=== PATIENT | male | born 2005 | race Caucasian/White ===

== ENCOUNTER 2024-07-02 21:31 | Observation (INO) ==
[2024-07-02 22:28] LABS: Basophils # (auto) 0.03 K/uL (0.00-0.20); Basophils % (auto) 0.4 %; Eosinophils # (auto) 0.28 K/uL (0.00-0.50); Eosinophils % (auto) 3.7 %; Hemoglobin 15.1 g/dl (14.0-18.0); Immature Granulocytes # (auto) 0.01 K/uL (0.01-0.20); Immature Granulocytes % (auto) 0.1 %; Lymphocytes # (auto) 2.79 K/uL (1.20-3.40); Lymphocytes % (auto) 36.8 %; Mean Corpuscular Hgb Conc 34.3 g/dL (32.0-36.0); Mean Corpuscular Volume 87.3 fL (80.0-100.0); Mean Platelet Volume 10.5 fL (9.4-12.4); Monocytes # (auto) 0.73 K/uL (0.11-0.59); Monocytes % (auto) 9.6 %; Neutrophils # (auto) 3.75 K/uL (1.40-6.50); Neutrophils % (auto) 49.4 %; Platelet Count 191 K/uL (130-400); RDW Coefficient of Variation 12.4 % (11.5-14.5); RDW Standard Deviation 39.3 fL (36.4-46.3); Red Blood Count 5.04 M/uL (4.70-6.10); White Blood Count 7.59 K/ul (4.8-10.8)
[2024-07-02 22:50] LABS: Albumin Globulin Ratio 1.5 (0.9-2); Albumin Level 4.6 gm/dl (3.4-5.0); BUN Creatinine Ratio 21.5 (10-20); Bilirubin,Total 0.5 mg/dl (0.2-1.0); Calcium 9.7 mg/dl (8.6-10.3); Creatinine Clr Calc Pharmacy 131.7 ml/min; Total Protein 7.6 gm/dl (6.0-8.3)
[2024-07-02 22:56] LABS: Troponin I High Sensitivity 6.3 pg/ml (0-20)
[2024-07-02] MEDS: diphenhydrAMINE 50 MG/ML VIAL IV STA (23:03)
[2024-07-02] MEDS: METOCLOPRAMIDE HCL INJ 5 MG/ML 2 ML VIAL IV STA (23:04)
--- NOTE | 2024-07-02 23:06 | Emergency Department Note ---
History of Present Illness General Chief complaint: Visual Disturbance Stated complaint: VISUAL DISTURBANCE/ DOUBLE VISION Time Seen by Provider: 07/02/24 21:54 History of Present Illness This 18-year-old [employer] student who is healthy with no active medical problems that smokes marijuana daily presents ER complaining of double vision for the past 2 hours. Patient states he just got back from [place] and was getting back to his apartment and noticed he started getting double vision when he started hanging out with his roommate. No trauma to the eye. Patient denies loss of vision, eye pain, headache, fever, chills, flulike illness, numbness, tingling, floaters. No history of similar symptoms in the past. He states he has been using his same marijuana and no changes in this. No other drug use. Home Medications Medication Instructions Recorded Confirmed Type No Known Home Medications 07/03/24 07/03/24 History Allergies Allergy/AdvReac Type Severity Reaction Status Date / Time No Known Allergies Allergy Unverified 07/03/24 01:19 Past Med/Surg History Problem List (Updated 07/03/24 @ 03:33 by Heaven Vera PA-C) Cannabis use disorder (Acute) Anxiety Arachnoid cyst (Acute) Diplopia (Acute) Social History Smoking Status: Current every day smoker Preferred Language: [place] Feels Safe at Home: Yes Review of Systems A total of 10 systems reviewed and were otherwise negative Physical Exam Vital Signs Vital Signs - 24 hr 07/02/24 21:34 07/02/24 23:31 07/03/24 02:40 Temperature 36.8 C Temperature Source Temporal Artery Scan Pulse Rate 59 L 44 L Pulse Rate [Right Finger] 56 L Pulse Rhythm [Right Finger] Regular Pulse Strength [Right Finger] Normal Respiratory Rate 18 17 Respiratory Effort / Characteristics Non-Labored Spontaneous Non-Labored Spontaneous Respiratory Depth Normal Normal Respiratory Pattern Regular Blood Pressure 140/88 Blood Pressure [Right Arm] 121/69 Blood Pressure Mean 105 Blood Pressure Mean [Right Arm] 86 Blood Pressure Position [Right Arm] Lying Pulse Oximetry 98 98 Oxygen Delivery Method Room Air Room Air Sepsis Recent Fever Within 48 Hours No Sepsis New/Unexplained Change in Mental Status No Sepsis Action Taken by Nursing No Action Required VITALS: Vitals are noted on the nurse's note and reviewed by myself. Vital signs stable. GENERAL: Pleasant gentleman, in no acute distress, nondiaphoretic, well- developed well-nourished. SKIN: The skin was without rashes, erythema, edema, or bruising. There is no tenting of the skin. Capillary reflex less than 2 seconds. HEAD: Normocephalic atraumatic. EARS: External auditory canals clear EYES: Pupils equal round and reactive to light and accommodation. Conjunctivae without injection, sclerae without icterus. Extraocular movements intact. NOSE: Patent, no discharge. MOUTH: Mucous membranes moist. Pharynx without erythema or exudate. Uvula midline. Airway patent. Tongue does not deviate. NECK: Supple without nuchal rigidity. No lymphadenopathy. No thyromegaly. Cervical spine is nontender. No JVD. HEART: Regular rate and rhythm LUNGS: Clear to auscultation bilaterally without wheezes, rales or rhonchi. No retractions or accessory muscle use. ABDOMEN: Positive bowel sounds x 4. Normal tympanic percussion. Soft, nontender, without masses or organomegaly. Rodrigez sign negative. No guarding or rebound tenderness. No CVA tenderness MUSCULOSKELETAL: No muscle atrophy, erythema, or edema noted. NEURO: Patient was alert and oriented to person place and time. Normal sensation to light and sharp touch. No focal neurological deficits. Course Administered Medications Discontinued Medications Diphenhydramine HCl (Diphenhydramine 50 Mg/Ml Vial) 25 mg IV NOW STA Stop: 07/02/24 22:07 Last Admin: 07/02/24 23:03 Dose: 25 mg Documented By: SANDRA Gadobutrol (Gadobutrol 30ml Vial) 10 ml IV ONCE ONE Stop: 07/03/24 01:20 Last Admin: 07/03/24 01:19 Dose: 10 ml Documented By: JANY Ioversol (Optiray 320 125ml) 116 ml IV ONCE ONE Stop: 07/02/24 23:21 Last Admin: 07/02/24 23:20 Dose: 116 ml Documented By: YUSRA Lorazepam (Lorazepam 2 Mg/1 Ml Vial) 1 mg IV NOW STA Stop: 07/02/24 22:01 Last Admin: 07/02/24 23:08 Dose: Not Given Documented By: SANDRA Lorazepam (Lorazepam 2 Mg/1 Ml Vial) 1 mg IV NOW STA Stop: 07/02/24 23:21 Last Admin: 07/02/24 23:35 Dose: 1 mg Documented By: SANDRA Metoclopramide HCl (Metoclopramide Hcl Inj 5 Mg/Ml 2 Ml Vial) 10 mg IV NOW STA Stop: 07/02/24 22:07 Last Admin: 07/02/24 23:04 Dose: 10 mg Documented By: SANDRA Medical Decision Making Medical Records Attestation: I reviewed the patient's medical records. Home Medications Current Medication List: was personally reviewed by me Laboratory Data Attestation: I reviewed the patient's lab results. 07/02/24 22:10 07/02/24 22:10 Lab Results 07/02/24 Range/Units 22:10 WBC 7.59 (4.8-10.8) K/ul RBC 5.04 (4.70-6.10) M/uL Hgb 15.1 (14.0-18.0) g/dl Hct 44.0 (42.0-52.0) % MCV 87.3 (80.0-100.0) fL MCH 30.0 (25.0-34.0) pg MCHC 34.3 (32.0-36.0) g/dL RDW Std Deviation 39.3 (36.4-46.3) fL RDW Coeff of Burke 12.4 (11.5-14.5) % Plt Count 191 (130-400) K/uL MPV 10.5 (9.4-12.4) fL Immature Gran % (Auto) 0.1 % Neut % (Auto) 49.4 % Lymph % (Auto) 36.8 % [place] % (Auto) 9.6 % Eos % (Auto) 3.7 % Baso % (Auto) 0.4 % Neut # (Auto) 3.75 (1.40-6.50) K/uL Lymph # (Auto) 2.79 (1.20-3.40) K/uL [place] # (Auto) 0.73 H (0.11-0.59) K/uL Eos # (Auto) 0.28 (0.00-0.50) K/uL Baso # (Auto) 0.03 (0.00-0.20) K/uL Immature Gran # (Auto) 0.01 (0.01-0.20) K/uL PT 11.0 (9.0-12.0) Seconds INR 1.0 (0.9-1.1) APTT 27 (21-31) Seconds PTT Ratio 1.0 Sodium 138 (136-145) mmol/L Potassium 4.0 (3.5-5.1) mmol/L Chloride 101 (98-107) mmol/L Carbon Dioxide 31 (21-32) mmol/L Anion Gap 6 (3-11) BUN 23 (6-23) mg/dl Creatinine 1.07 (0.6-1.4) mg/dl Est Cr Clr Drug Dosing 131.7 ml/min eGFR 101.88 BUN/Creatinine Ratio 21.5 H (10-20) Glucose 84 (70-99(Fasting)) mg/dl Calcium 9.7 (8.6-10.3) mg/dl Magnesium 2.0 (1.7-2.4) mg/dl Total Bilirubin 0.5 (0.2-1.0) mg/dl AST 31 (13-39) U/L ALT 28 (7-52) U/L Alkaline Phosphatase 84 (34-104) U/L Troponin I High Sens 6.3 (0-20) pg/ml Total Protein 7.6 (6.0-8.3) gm/dl Albumin 4.6 (3.4-5.0) gm/dl Globulin 3.0 (2.5-4.0) gm/dl Albumin/Globulin Ratio 1.5 (0.9-2) TSH 3.362 (0.300-4.500) uIu/ml Imaging Data Attestation: I personally reviewed and interpreted this imaging study as follows: Radiologist's Impression: Head CT 07/02/24 22:01 CR Exam(s): CT HEAD Without Contrast EXAM: CT Head Without Intravenous Contrast CLINICAL HISTORY: Reason for exam: neuro deficit, vision changes. TECHNIQUE: Axial computed tomography images of the head/brain without intravenous contrast. CTDI is 22.84 mGy and DLP is 468.9 mGy-cm. Automated exposure control was utilized for the study. A dose lowering technique was utilized adhering to the principles of ALARA. COMPARISON: No relevant prior studies available. FINDINGS: Brain: Smooth oval 4.3 x 2.4 x 2.5 cm CSF dense structure in the anterior aspect of the left middle cranial fossa characteristic of an arachnoid cyst. Otherwise normal appearance of the brain. No intracranial hemorrhage or infarct is identified. No significant white matter disease. Ventricles: Unremarkable. No ventriculomegaly. Bones/joints: Unremarkable. No acute fracture. Soft tissues: Unremarkable. Sinuses: Unremarkable as visualized. No acute sinusitis. Mastoid air cells: Unremarkable as visualized. No mastoid effusion. IMPRESSION: Smooth oval 4.3 x 2.4 x 2.5 cm CSF dense structure in the anterior aspect of the left middle cranial fossa characteristic of an arachnoid cyst. No further imaging is required of this finding. Otherwise normal appearance of the brain. No intracranial hemorrhage or infarct is identified. Communications: Call Doctor Stroke Electronically signed by: Oj Selby MD 07/02/24 23:44 PM Head CTA 07/02/24 22:01 CR Exam(s): CTA HEAD With Contrast IV Amt: 116ML OPTIRAY 320 EXAM: CT Angiography Head With Intravenous Contrast CLINICAL HISTORY: Reason for exam: neuro deficit, vision changes. TECHNIQUE: Axial computed tomographic angiography images of the head with intravenous contrast. CTDI is 38.31 mGy and DLP is 624.41 mGy-cm. Automated exposure control was utilized for the study. A dose lowering technique was utilized adhering to the principles of ALARA. MIP reconstructed images were created and reviewed. CONTRAST: Patient received 116ML OPTIRAY 320 of IV contrast COMPARISON: No relevant prior studies available. FINDINGS: Right internal carotid artery: No acute findings. Intracranial segment is patent with no significant stenosis. No aneurysm. Right anterior cerebral artery: Unremarkable. No occlusion or significant stenosis. No aneurysm. Right middle cerebral artery: Unremarkable. No occlusion or significant stenosis. No aneurysm. Right posterior cerebral artery: Unremarkable. No occlusion or significant stenosis. No aneurysm. Right vertebral artery: Unremarkable as visualized. Left internal carotid artery: No acute findings. Intracranial segment is patent with no significant stenosis. No aneurysm. Left anterior cerebral artery: Hypoplasia of the left A1 segment. This is a normal variant. No occlusion or significant stenosis. No aneurysm. Left middle cerebral artery: Unremarkable. No occlusion or significant stenosis. No aneurysm. Left posterior cerebral artery: Unremarkable. No occlusion or significant stenosis. No aneurysm. Left vertebral artery: Unremarkable as visualized. Basilar artery: Unremarkable. No occlusion or significant stenosis. No aneurysm. Sinuses: 1.7 cm polyp or mucous retention cyst in the left maxillary sinus. The remaining sinuses are unremarkable. IMPRESSION: Normal appearance of the arterial structures of the brain. Communications: Call Doctor Stroke Electronically signed by: Oj Selby MD 07/02/24 23:46 PM Neck CTA 07/02/24 22:01 CR Exam(s): CTA NECK With Contrast IV Amt: 116ML OPTIRAY 320 EXAM: CT Angiography Neck With Intravenous Contrast CLINICAL HISTORY: Reason for exam: neuro deficit, vision changes. TECHNIQUE: Routine carotid CT angiography protocol was performed with intravenous contrast. NASCET criteria using the distal ICAs for comparison were used for evaluation of stenoses. CTDI is 12.25 mGy and DLP is 468 mGy-cm. Automated exposure control was utilized for the study. A dose lowering technique was utilized adhering to the principles of ALARA. MIP reconstructed images were created and reviewed. CONTRAST: Patient received 116ML OPTIRAY 320 of IV contrast COMPARISON: None. FINDINGS: VASCULATURE: Right common carotid artery: Unremarkable. No occlusion or significant stenosis. No dissection. Right internal carotid artery: Unremarkable. Extracranial segment is patent with no occlusion or significant stenosis. No dissection. Right external carotid artery: Unremarkable. No occlusion. Right vertebral artery: Unremarkable. No occlusion or significant stenosis. No dissection. Left common carotid artery: Unremarkable. No occlusion or significant stenosis. No dissection. Left internal carotid artery: Unremarkable. Extracranial segment is patent with no occlusion or significant stenosis. No dissection. Left external carotid artery: Unremarkable. No occlusion. Left vertebral artery: Unremarkable. No occlusion or significant stenosis. No dissection. NECK: Bones/joints: Unremarkable. No acute fracture. Soft tissues: Unremarkable. Lung apices: Clear. CAROTID STENOSIS REFERENCE USING NASCET CRITERIA: % ICA stenosis = (1 - narrowest ICA diameter/diameter of distal cervical ICA) x 100. Mild - <50% stenosis. Moderate - 50-69% stenosis. Severe - 70-94% stenosis. Near occlusion - 95-99% stenosis. Occluded - 100% stenosis. IMPRESSION: Negative CTA neck. Communications: Call Doctor Stroke Electronically signed by: Oj Selby MD 07/02/24 23:46 PM Brain MRI 07/02/24 23:49 EXAM: MR brain wo/w con CLINICAL HISTORY: double vision, ? left sixth nerve eye palsy TECHNIQUE: Multisequential and multiplanar images of the brain were submitted for review without and with contrast. COMPARISON: none FINDINGS: A well defined extra-axial T1 hypointense and T2 hyperintense cystic lesion , with compression FLAIR suppression and no -enhancing component, measuring 3.4x4.4x2.3cm seen in left anterior temporal region. The brain shows normal morphology, signal intensity, and volume for age. No focal parenchymal lesions are seen. No pathological enhancement is noted on the postcontrast sequences. No intracranial hemorrhage, mass effect, midline shift or hydrocephalus is identified. Ventricles, sulci, and basal cisterns are symmetric and normal in size and configuration. Diffusion-weighted sequences show no evidence of acute ischemic infarction. Midline structures including the pituitary gland, corpus callosum, pineal region, and brainstem are unremarkable. The craniovertebral junction is within normal limits. No calvarial abnormalities are identified. The paranasal sinuses and mastoid air cells are clear. Orbital structures are unremarkable. Appropriate flow voids are present in the visualized intracranial vessels. IMPRESSION: 1. No abnormal enhancing lesion in brain parenchymal. 2. A well defined extra-axial T2 hyperintense cystic lesion in left anterior temporal region- Arachnoid cyst. Electronically signed by Pako Grissom 07-03-2024 03:24 AM Orbit MRI 07/02/24 23:49 EXAM: MR orbit wo/w con CLINICAL HISTORY: ? sixth nerve eye palsy; double vision TECHNIQUE: Multiplanar multisequence MRI of the orbits without and with gadolinium, fat-suppressed technique. COMPARISON: none FINDINGS: Bilateral abducent nerve complexes shows normal course and caliber. No abnormal signal intensity. No focal lesion seen. No proptosis. Globes are symmetric in volume and signal intensity. No intra-or extraconal mass. Extraocular muscles are symmetric in volume, signal intensity. Retro-orbital fat is unremarkable. Periorbital soft tissue suggests no discrete abnormality. Orbital apex, region of the optic chiasm are unremarkable. Cavernous sinus are intact. Symmetric lacrimal glands. Incomplete fat suppression of the intraorbital fat is identified. Left maxillary sinus small mucosal polyp seen. Intracranial left anterior temporal region arachnoid cyst seen. IMPRESSION: 1. Bilateral abducent nerve complexes shows normal course and caliber. No abnormal signal intensity. No focal lesion seen. 2. Unremarkable MRI of both orbits. 3. Left maxillary sinus small mucosal polyp seen. 4. Intracranial left anterior temporal region arachnoid cyst seen. Electronically signed by Pako Grissom 07-03-2024 03:27 AM MDM Narrative Prior records/ancillary studies reviewed and summarized above. Nursing notes reviewed. Additional history obtained from friends. The patient's history was concerning for difficulty focusing. Differential diagnosis: Etiologies such as neurologic, ophthalmologic, polysubstance, migraine variant, metabolic, infection, hypo/hyperglycemia, electrolyte abnormalities, cardiac sources, intracerebral event, toxicologic, neurologic, as well as others were entertained. Physical examination: As above. ER treatment provided: IV Lock An order was placed for continuous cardiac monitoring. The monitor shows a rate of 60-100 with a sinus rhythm per my interpretation. Reglan and Benadryl ordered On reassessment the patient felt better. Diagnostics interpretation by me: ECG: Ordered for weakness EKG: Normal sinus, normal intervals, no acute ST-T wave changes, rate of 46. Impression sinus bradycardia independently interpreted by myself The labs Independently Interpreted by myself revealed no worrisome leukocytosis, stable H&H Negative troponin Imaging studies: Imaging was reviewed and read by radiology Consultation: A consultation was placed with the neurologist, Dr. Lemon. The case was discussed and diagnostics were reviewed. He recommends MRI and admission to medicine. Most likely this is a 6th nerve palsy. Consultation was placed with medicine and the case is discussed. Patient be admitted to the medical service. While the patient was in the ER, his double vision got worse and did reexamine the patient. His left eye is now deviating more medially and he is unable to look up and out. Right eye is normal. Exam and history seem consistent with double vision with concerns for 6th nerve palsy. CT/ CTAs were negative. MRI was reviewed and no stroke. Stable labs. Patient did smoke a fair amount of marijuana today. Neurology was consulted and recommends medical admission with MRIs. They stated the patient was grossly abnormal to consult telestroke at [facility]. Patient was neurovascularly and neurologically intact. He is tolerating fluids. No loss of vision. No eye pain. Medicine and neurology were consulted and patient will be mated to the medical service. Patient is agreeable. By the evaluation outlined above emergent etiologies such as infection, electrolyte abnormalities, cardiac sources, abnormalities blood glucose, metabolic, as well as others were deemed relatively unlikely. The pt informed about the findings as listed above. All questions were answered and pleased with the treatment. The chart was completed utilizing [employer] voice recognition software. Grammatical errors, random word insertions, pronoun errors, and incomplete sentences are an occassional consequence of this system due to software limitations, ambient noise, and hardware issues. Any formal questions or concerns about the content, text, or information contained within the body of this dictation should be directly addressed to the physician acquisitions assistant for clarification. Impression & Plan Diplopia, Arachnoid cyst, Cannabis use disorder Discharge Plan Visit Data Chief Complaint: Visual Disturbance Stated Complaint: VISUAL DISTURBANCE/ DOUBLE VISION ED Provider: Darline Chen ED Midlevel Provider: Heaven Vera Discharge Problem: Diplopia, Arachnoid cyst, Cannabis use disorder Patient Disposition: Admitted As Inpatient Condition: Good Forms Stand Alone Forms: [employer] Prescriptions Prescriptions: No Action No Known Home Medications Referrals [facility]: [facility] [Primary Care Provider] -
[2024-07-02] MEDS: LORazepam 2 MG/1 ML VIAL IV STA ×2 (23:08→23:35)
[2024-07-02] MEDS: OPTIRAY 320 125ml IV ONE (23:20)
[2024-07-02 23:32] LABS: Partial Thromboplastin Time 27 Seconds (21-31)
--- NOTE | 2024-07-02 23:45 | CT Scan Report ---
Exam(s): CT HEAD Without Contrast EXAM: CT Head Without Intravenous Contrast CLINICAL HISTORY: Reason for exam: neuro deficit, vision changes. TECHNIQUE: Axial computed tomography images of the head/brain without intravenous contrast. CTDI is 22.84 mGy and DLP is 468.9 mGy-cm. Automated exposure control was utilized for the study. A dose lowering technique was utilized adhering to the principles of ALARA. COMPARISON: No relevant prior studies available. FINDINGS: Brain: Smooth oval 4.3 x 2.4 x 2.5 cm CSF dense structure in the anterior aspect of the left middle cranial fossa characteristic of an arachnoid cyst. Otherwise normal appearance of the brain. No intracranial hemorrhage or infarct is identified. No significant white matter disease. Ventricles: Unremarkable. No ventriculomegaly. Bones/joints: Unremarkable. No acute fracture. Soft tissues: Unremarkable. Sinuses: Unremarkable as visualized. No acute sinusitis. Mastoid air cells: Unremarkable as visualized. No mastoid effusion. IMPRESSION: Smooth oval 4.3 x 2.4 x 2.5 cm CSF dense structure in the anterior aspect of the left middle cranial fossa characteristic of an arachnoid cyst. No further imaging is required of this finding. Otherwise normal appearance of the brain. No intracranial hemorrhage or infarct is identified. Communications: Call Doctor Stroke Electronically signed by: Oj Selby MD 07/02/24 23:44 PM
--- NOTE | 2024-07-02 23:46 | CT Scan Report ---
Exam(s): CTA HEAD With Contrast IV Amt: 116ML OPTIRAY 320 EXAM: CT Angiography Head With Intravenous Contrast CLINICAL HISTORY: Reason for exam: neuro deficit, vision changes. TECHNIQUE: Axial computed tomographic angiography images of the head with intravenous contrast. CTDI is 38.31 mGy and DLP is 624.41 mGy-cm. Automated exposure control was utilized for the study. A dose lowering technique was utilized adhering to the principles of ALARA. MIP reconstructed images were created and reviewed. CONTRAST: Patient received 116ML OPTIRAY 320 of IV contrast COMPARISON: No relevant prior studies available. FINDINGS: Right internal carotid artery: No acute findings. Intracranial segment is patent with no significant stenosis. No aneurysm. Right anterior cerebral artery: Unremarkable. No occlusion or significant stenosis. No aneurysm. Right middle cerebral artery: Unremarkable. No occlusion or significant stenosis. No aneurysm. Right posterior cerebral artery: Unremarkable. No occlusion or significant stenosis. No aneurysm. Right vertebral artery: Unremarkable as visualized. Left internal carotid artery: No acute findings. Intracranial segment is patent with no significant stenosis. No aneurysm. Left anterior cerebral artery: Hypoplasia of the left A1 segment. This is a normal variant. No occlusion or significant stenosis. No aneurysm. Left middle cerebral artery: Unremarkable. No occlusion or significant stenosis. No aneurysm. Left posterior cerebral artery: Unremarkable. No occlusion or significant stenosis. No aneurysm. Left vertebral artery: Unremarkable as visualized. Basilar artery: Unremarkable. No occlusion or significant stenosis. No aneurysm. Sinuses: 1.7 cm polyp or mucous retention cyst in the left maxillary sinus. The remaining sinuses are unremarkable. IMPRESSION: Normal appearance of the arterial structures of the brain. Communications: Call Doctor Stroke Electronically signed by: Oj Selby MD 07/02/24 23:46 PM
--- NOTE | 2024-07-02 23:47 | CT Scan Report ---
Exam(s): CTA NECK With Contrast IV Amt: 116ML OPTIRAY 320 EXAM: CT Angiography Neck With Intravenous Contrast CLINICAL HISTORY: Reason for exam: neuro deficit, vision changes. TECHNIQUE: Routine carotid CT angiography protocol was performed with intravenous contrast. NASCET criteria using the distal ICAs for comparison were used for evaluation of stenoses. CTDI is 12.25 mGy and DLP is 468 mGy-cm. Automated exposure control was utilized for the study. A dose lowering technique was utilized adhering to the principles of ALARA. MIP reconstructed images were created and reviewed. CONTRAST: Patient received 116ML OPTIRAY 320 of IV contrast COMPARISON: None. FINDINGS: VASCULATURE: Right common carotid artery: Unremarkable. No occlusion or significant stenosis. No dissection. Right internal carotid artery: Unremarkable. Extracranial segment is patent with no occlusion or significant stenosis. No dissection. Right external carotid artery: Unremarkable. No occlusion. Right vertebral artery: Unremarkable. No occlusion or significant stenosis. No dissection. Left common carotid artery: Unremarkable. No occlusion or significant stenosis. No dissection. Left internal carotid artery: Unremarkable. Extracranial segment is patent with no occlusion or significant stenosis. No dissection. Left external carotid artery: Unremarkable. No occlusion. Left vertebral artery: Unremarkable. No occlusion or significant stenosis. No dissection. NECK: Bones/joints: Unremarkable. No acute fracture. Soft tissues: Unremarkable. Lung apices: Clear. CAROTID STENOSIS REFERENCE USING NASCET CRITERIA: % ICA stenosis = (1 - narrowest ICA diameter/diameter of distal cervical ICA) x 100. Mild - <50% stenosis. Moderate - 50-69% stenosis. Severe - 70-94% stenosis. Near occlusion - 95-99% stenosis. Occluded - 100% stenosis. IMPRESSION: Negative CTA neck. Communications: Call Doctor Stroke Electronically signed by: Oj Selby MD 07/02/24 23:46 PM
--- NOTE | 2024-07-03 00:06 | Emergency Department Note ---
ED Visit Note I was consulted by the Advanced Practice Provider, Heaven Vera PA-C. I performed a substantive portion of the visit. This includes aspects of: History: Patient is a 18-year-old male presenting with diplopia. Patient reports he just rode back to school from [place] after spring break and while he was unpacking his stuff he developed sensation that his eyes were crossing and double vision. He states vision has been double since onset at around 8:30 PM this evening. He denies any trauma or recent chiropractic manipulation of his neck. He denies any headache. He states that when he opens his eyes one by one he has no double vision, but when both eyes are open he is seeing 2 of everything. MDM: - Laboratory workup interpreted myself showed normal WBCs; normal PT/INR; stable electrolytes; normal troponin; normal TSH - CT head wo contrast showed what appeared to be an arachnoid cyst in the anterior aspect of left middle cranial fossa. Radiology reported that this needed no further workup on their phone call to me. - CTA head/neck negative - On examination, the patient appears to have a cranial nerve palsy. - Neurologist, Dr. Lemon, was consulted by Heaven Vera PA-C. He agreed with admission for further workup. Patient will be admitted to [facility]. .
[2024-07-03 00:50] LABS: Thyroid Stimulating Hormone 3.362 uIu/ml (0.300-4.500)
[2024-07-03] MEDS: GADOBUTROL 30ML VIAL IV ONE (01:19)
--- NOTE | 2024-07-03 01:32 | History & Physical Report ---
Date of Service July 03, 2024 Assessment & Plan (1) Diplopia: (2) Arachnoid cyst: (3) Anxiety: Plan Patient is a 18-year-old male with no significant past medical history. He presented to the ED after returning from spring with double vision that began at 8:30 PM. He opens his eyes one by one he has no double vision, but when both eyes are open he sees [address] of the head showed arachnoid cyst in the anterior aspect of the left middle cranial fossa. Brain and orbit MRI with and without contrast ordered and pending. He is being admitted to have neurology eval in the morning, different includes but not limited to cranial nerve 6 palsy. #diplopia denies trauma to the eye head ct shows arachnoid cyst head/neck CTA negative brain/orbit MRI pending differential remains broad however neurology input believes that it may be cranial nerve palsy - differential includes but not limited to tickborne illness, viral illness, Medication side effect (recently started Vyvanse, can cause diplopia, took 1x dose 06/29) TSH WNL glucose stable, will add A1c to labs as DM can contribute to CN 6 palsy (no hx of DM) tick screen including Lyme ordered, RPR ordered Electrolytes stable Continue supportive care with Ativan and Reglan as needed neurology consulted #arachnoid cyst CT head showed 4.3 x 2.4 x 2.5 arachnoid cyst in anterior aspect of left middle cranial fossa - no mass effect Brain and orbit MRI pending Neurology consulted #anxiety 2/2 diplopia Ativan as needed does not use anything for anxiety at baseline VTE ppx: SCDs, low risk Diet: regular Dispo: med surg, obs - possible discharge home 07/03 Admission and Anticipated Discharge Date Admission Date: 07/03/24 History of Present Illness Chief Complaint: visual disturbance Primary Care Provider: [facility] Patient is a 18-year-old male with no significant past medical history. He presented to the ED after returning from spring with double vision that began at 8:30 PM. He opens his eyes one by one he has no double vision, but when both eyes are open he sees [address] of the head showed arachnoid cyst in the anterior aspect of the left middle cranial fossa. Brain and orbit MRI with and without contrast ordered and pending. He is being admitted to have neurology eval in the morning. Patient seen at bedside with his friends present. he stated that at 8:30 PM he began with double vision that has been worsening, however improved after receiving Benadryl, Reglan, and Ativan in the ED. He endorses associated nausea and dizziness, however became extremely anxious that his vision would not return and feels as though that was contributing to his nausea. He stated the diplopia gets worse further away and is equal in both of his eyes. It is at a horizontal standpoint. He stated it is an exact replica of the objects, denies it being shadow like. He stated he does wear reading glasses occasionally. He did recently start Vyvanse on , approximately 3 days ago, he only took it 1 time to see if he had a reaction. he denies any fevers, chills, chest pain, shortness of breath, ABD pain, vomiting, diarrhea, flulike symptoms, rhinorrhea, sore throat, congestion, cough. Patient does not use nicotine products or regularly drink alcohol. He is a daily marijuana user for approximately 3 years. He denies any illicit drug use other than marijuana. He stated he does not believe he has ever been bit by a tick, denies any rashes. His girlfriend and roommates had mono last semester, however he was tested and was negative. His only past medical history is childhood asthma, he rarely uses his inhaler. He denies past history of DM. He wishes to be full code. Allergies Allergy/AdvReac Type Severity Reaction Status Date / Time No Known Allergies Allergy Unverified 07/03/24 01:19 Home Medications Medication Instructions Recorded Confirmed Type No Known Home Medications 07/03/24 07/03/24 History Past Med/Surg History Problem List (Updated 07/03/24 @ 03:33 by Heaven Vera PA-C) Cannabis use disorder (Acute) Anxiety Arachnoid cyst (Acute) Diplopia (Acute) Social History Smoking Status: Current every day smoker Preferred Language: [place] Feels Safe at Home: Yes Review of Systems Review of Systems: see HPI Physical Exam Physical Exam: The patient is awake, alert and oriented 3, well developed and well nourished, normocephalic and atraumatic, in no acute distress. Non-toxic appearing. HEENT- mucous membranes moist. Hearing grossly intact. Heart-normal S1 and S2. No murmurs, rubs or gallops. Lungs-clear bilaterally, no respiratory distress, no accessory muscle use. Abdomen-normal bowel sounds and soft. No ascites noted. Non-tender. Extremities- no clubbing, cyanosis, or edema. Rheumatologic-normal range of motion. Psychiatric- Anxious affect. Eyes: PERRL and + EOM movement deficit ( right eye lagging compared to left, however received 2 Mg IV Ativan); normal light reflex Results & Data Results & Data Vital Signs (Past 12 Hours) Vital Signs Temp Pulse Pulse Resp BP BP Pulse Ox 07/02/24 23:31 56 L 17 121/69 98 07/02/24 21:34 36.8 C 59 L 18 140/88 98 O2 Del Method 07/02/24 23:31 Room Air 07/02/24 21:34 Room Air Laboratory Results Reviewed CBC, CMP, mag, TSH, pt/inr Diagnostic Findings Reviewed neck CTA, head CTA, head CT Brain and orbit MRI pending Medications Administered ED2 Mg Ativan IV, Reglan 10 Mg IV, Benadryl 25 Mg IV ECG Additional Comments: Sinus bradycardia, rate 46 QTc 367 Code Status & VTE Plan Code Status full code VTE Prophylaxis Plan VTE Prophylaxis will be ordered: Yes Supervising Physician Co-Signing Physician Notes Attending addendum: I have physically seen this patient, have supervised the RAJI's activities, and agree with the H&P unless as otherwise noted. Assessment and Plan: The patient is a 18-year-old male with no significant past medical history. He presents to the emergency department returning from spring with complaint of double vision that began around 8:30 PM this evening. He reports that when both eyes are open he sees [address] scan of the head showed arachnoid cyst in the anterior aspect of the left middle cranial fossa. Brain and orbit MRI are ordered with and without contrast, and are pending Emergency department has contacted neurology, who request the patient be admitted to evaluate for possible cranial nerve palsy #Diplopia- No direct eye trauma or head trauma CT scan head shows arachnoid cyst that is 4.3 x 2.4 x 2.5 cm in the left middle cranial fossa. No mass effect is noted Differential including but not limited to: Tickborne illness, viral illness, medication side effect, having recently started Vyvanse on 06/29, with first dose taken at that time. Check a fasting lipid panel and hemoglobin A1c Consult neurology Arachnoid cyst- CT notes 4.3 x 2.4 x 2.5 cm arachnoid cyst in the anterior aspect left middle cranial fossa, no mass effect noted, brain and orbit MRI are pending, neurology is consulted, radiology notes no additional imaging needed be performed PG Care Time/CCT Total # of Minutes Spent Total Time Spent with Patient: Total time spent is greater than 50% in coordination of care (as documented) at patient's floor/unit and/or counseling patient: Coding Level of Care Code 51537 INT INP/OBS CARE 3/75MIN Diagnoses Diplopia H53.2 Arachnoid cyst G93.0 Anxiety F41.9
--- NOTE | 2024-07-03 03:25 | Magnetic Resonance Report ---
EXAM: MR brain wo/w con CLINICAL HISTORY: double vision, ? left sixth nerve eye palsy TECHNIQUE: Multisequential and multiplanar images of the brain were submitted for review without and with contrast. COMPARISON: none FINDINGS: A well defined extra-axial T1 hypointense and T2 hyperintense cystic lesion , with compression FLAIR suppression and no -enhancing component, measuring 3.4x4.4x2.3cm seen in left anterior temporal region. The brain shows normal morphology, signal intensity, and volume for age. No focal parenchymal lesions are seen. No pathological enhancement is noted on the postcontrast sequences. No intracranial hemorrhage, mass effect, midline shift or hydrocephalus is identified. Ventricles, sulci, and basal cisterns are symmetric and normal in size and configuration. Diffusion-weighted sequences show no evidence of acute ischemic infarction. Midline structures including the pituitary gland, corpus callosum, pineal region, and brainstem are unremarkable. The craniovertebral junction is within normal limits. No calvarial abnormalities are identified. The paranasal sinuses and mastoid air cells are clear. Orbital structures are unremarkable. Appropriate flow voids are present in the visualized intracranial vessels. IMPRESSION: 1. No abnormal enhancing lesion in brain parenchymal. 2. A well defined extra-axial T2 hyperintense cystic lesion in left anterior temporal region- Arachnoid cyst. Electronically signed by Pako Grissom 07-03-2024 03:24 AM
--- NOTE | 2024-07-03 03:27 | Magnetic Resonance Report ---
EXAM: MR orbit wo/w con CLINICAL HISTORY: ? sixth nerve eye palsy; double vision TECHNIQUE: Multiplanar multisequence MRI of the orbits without and with gadolinium, fat-suppressed technique. COMPARISON: none FINDINGS: Bilateral abducent nerve complexes shows normal course and caliber. No abnormal signal intensity. No focal lesion seen. No proptosis. Globes are symmetric in volume and signal intensity. No intra-or extraconal mass. Extraocular muscles are symmetric in volume, signal intensity. Retro-orbital fat is unremarkable. Periorbital soft tissue suggests no discrete abnormality. Orbital apex, region of the optic chiasm are unremarkable. Cavernous sinus are intact. Symmetric lacrimal glands. Incomplete fat suppression of the intraorbital fat is identified. Left maxillary sinus small mucosal polyp seen. Intracranial left anterior temporal region arachnoid cyst seen. IMPRESSION: 1. Bilateral abducent nerve complexes shows normal course and caliber. No abnormal signal intensity. No focal lesion seen. 2. Unremarkable MRI of both orbits. 3. Left maxillary sinus small mucosal polyp seen. 4. Intracranial left anterior temporal region arachnoid cyst seen. Electronically signed by Pako Grissom 07-03-2024 03:27 AM
[2024-07-03 03:40] LABS: Polychromasia 1+
[2024-07-03] MEDS ORDERED: ACETAMINOPHEN 325 MG TAB PO PRN (04:15)
[2024-07-03] MEDS ORDERED: DOCUSATE SODIUM 100 MG CAP PO PRN (04:15)
[2024-07-03] MEDS ORDERED: MELATONIN 3 MG TAB PO PRN (04:15)
[2024-07-03] MEDS ORDERED: METOCLOPRAMIDE HCL INJ 5 MG/ML 2 ML VIAL IV PRN (04:15)
[2024-07-03] MEDS ORDERED: LORazepam 2 MG/1 ML VIAL IV PRN (04:15)
[2024-07-03 05:20] VITALS: TEMP 97.5; O2SAT 96
[2024-07-03 07:11] VITALS: BP 119/69; PULSE 71; RESP 18
--- NOTE | 2024-07-03 09:48 | Medical Student Progress Note ---
Date of Service July 03, 2024 Assessment & Plan (1) Diplopia: (2) Arachnoid cyst: (3) Anxiety: Plan Patient is a 18-year-old male with no significant past medical history. He presented to the ED after returning from spring with double vision that began at 8:30 PM. He opens his eyes one by one he has no double vision, but when both eyes are open he sees [address] of the head showed arachnoid cyst in the anterior aspect of the left middle cranial fossa. Brain and orbit MRI with and without contrast ordered and pending. He is being admitted to have neurology eval in the morning, different includes but not limited to cranial nerve 6 palsy. #diplopia denies trauma to the eye head ct shows arachnoid cyst head/neck CTA negative brain/orbit MRI pending differential remains broad however neurology input believes that it may be cranial nerve palsy - differential includes but not limited to tickborne illness, viral illness, Medication side effect (recently started Vyvanse, can cause diplopia, took 1x dose 06/29) TSH WNL glucose stable, will add A1c to labs as DM can contribute to CN 6 palsy (no hx of DM) tick screen including Lyme ordered, RPR ordered Electrolytes stable Continue supportive care with Ativan and Reglan as needed neurology consulted #arachnoid cyst CT head showed 4.3 x 2.4 x 2.5 arachnoid cyst in anterior aspect of left middle cranial fossa - no mass effect Brain and orbit MRI pending Neurology consulted #anxiety 2/2 diplopia Ativan as needed does not use anything for anxiety at baseline VTE ppx: SCDs, low risk Diet: regular Dispo: med surg, obs - possible discharge home 07/03 Admission and Anticipated Discharge Date Admission Date: July 03, 2024 Subjective No acute overnight events. Mik feels well this morning. Diplopia was minimal when he first woke up, but has increased with time. Results & Data Vital Signs (Past 12 Hours) Vital Signs Temp Pulse Pulse Resp BP Pulse Ox O2 Del Method 07/03/24 07:08 36.4 C L 71 18 119/69 96 Room Air 07/03/24 05:09 36.4 C L 84 16 111/69 96 Room Air 07/03/24 03:56 Room Air 07/03/24 02:40 44 L 07/02/24 23:31 56 L 17 121/69 98 Room Air
--- NOTE | 2024-07-03 09:52 | Neurology Consultation ---
Date of Consultation July 03, 2024 Assessment & Plan (1) Diplopia: (2) Arachnoid cyst: Plan Patient has new onset (the evening of July 02) binocular diplopia of a painless, pupil sparing nature. There is no ptosis or any other cranial nerve deficit. He has no head tilt. The rest of his neurologic examination is unremarkable/normal. A slight left 3rd nerve palsy is possible. Extensive imaging study including MRI of the orbits and brain with and without contrast showed no abnormalities referable to his double vision. Brainstem and cranial nerve pathways were normal. The orbits did not show any evidence of inflammation/infection. I actually do not have any specific etiology for this acute double vision at this time. It may be a self-limited issue fading away over the next couple of days. Patient had an incidental left anterior temporal arachnoid cyst noted. He was likely born with this and is not causing any symptoms Recommendations: 1. Consider ESR, CRP, acetylcholine receptor antibodies titers (binding, blocking, and modulating), LUBA. 2. Patient should see an insulation helper as an outpatient 3. I do not see any indication for any additional neurologic testing at this time 4. There is no specific neurologic treatment for this. 5. Patient could follow-up with neurology PA in 3 to 4 weeks post discharge if he still has the issue. Overall, I spent a total of 75 minutes with this case including review of records, review of MRI films, direct evaluation the patient at bedside, report generation, and discussing the case with the patient and RN at bedside and Dr. 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 Apparently he had 1 dose of Vyvanse on June 29 (a new prescription) but did not take it the , , , or today. The patient admits to smoking marijuana on a daily basis. This was true throughout last week including July 02. Patient was in [place] for spring and he returned home early on the . Apparently only had 4 hours of sleep from the into the . He has had no history of head or neck trauma and has had no illness of any type recently. He has had no history of vision issues. Starting approximately 2030 on the evening of July 02 he had the sudden onset of double vision. He had a little bit of dizziness with this and he noticed the double vision with both eyes open straight ahead, upwards and downwards and to the left. He had no headache or eye pain and had no weakness or numbness of the face. He could swallow and speak well. There was a little bit of "dizziness" with this but no nausea or vomiting. The worst of it lasted about 2 hours but has had mild double vision essentially continuously ever since. He arrived to the emergency room at 2134, with a temperature of 36.8, pulse 59, respiratory rate 18, blood pressure 140/88, and O2 saturation 98%. According to the emergency room mentions extraocular eye muscles were intact and no disconjugate noted. CBC, CHEM profile, TSH were unremarkable/normal. CT scan of the head showed a left anterior temporal hypodensity consistent with an arachnoid cyst. CT angiography of the head and neck were unremarkable/normal with no vascular anomalies or stenoses. MRI of the brain with and without contrast showed a 3.4 x 4.4 x 2.3 cm cyst in the left anterior temporal region consistent with an arachnoid cyst. It did not enhance and there was no mass effect. There were no other abnormalities of the brain noted. MRI of the orbits was normal as well. This morning, the patient still has some double vision but it is not as prominent or disconcerting as it was last night. Now he tends to have double vision looking up or straight ahead and not so much to the right or left. He feels that his eyes are strained/tired but there is no eye pain. He denies any numbness or weakness in the arms or legs. He has no droopy eyelids or swallowing problems. This morning blood pressure was 119/69 and he was afebrile. Allergies Allergy/AdvReac Type Severity Reaction Status Date / Time No Known Allergies Allergy Unverified 07/03/24 01:19 Home Medications Medication Instructions Recorded Confirmed Type No Known Home Medications 07/03/24 07/03/24 History Patient History Medical History (Updated 07/03/24 @ 09:43 by Wero Soria MD) ADHD Family History Mother No problems noted. Father No problems noted. Social History Smoking Status: Never smoker Second Hand Exposure: No; Do You Dip or Chew Tobacco: No; Hx Alcohol Use: Yes Alcohol type: beer Alcohol Intake Frequency Comment: 6-7 drinks at a time, once or twice a month. 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 Feels Safe at Home: Yes Assistive Devices: None Review of Systems Constitutional: no fever, no fatigue and no weakness Eyes: no diplopia, no eye pain and no worsening vision Ear, Nose, Mouth, Throat: no ear pain, no tinnitus, no hearing loss, no dizziness, no snoring, no hoarseness and no dysphagia Respiratory: no cough and no dyspnea Cardiovascular: no chest pain, no palpitations and no lightheadedness Gastrointestinal: no abdominal pain, no nausea and no vomiting Musculoskeletal: no back pain, no neck pain, no radicular pain, no joint pain and no myalgia Integumentary: no rash and no lesions Neurologic: no gait abnormality, no localized weakness, no generalized weakness, no tingling, no numbness, no tremor(s), no abnormal movements, no headache(s), no abnormal speech, no confusion and no memory loss Psychiatric: no depression, no irritability, no anxiety, no difficulty concentrating, no confusion and no hallucinations Endocrine: no fatigue and no flushing Hematologic / Lymphatic: no easy bleeding and no easy bruising Allergy / Immunological: no urticaria and no problem reported Exam (Neuro) Physical Exam: The patient is right-handed. The patient is awake, alert, and attentive. Speech is normal without any aphasia or dysarthria. Mentation and thought processes are intact, with full orientation and normal fund of knowledge. Mood and affect are normal and appropriate. Appearance and grooming are normal. Short and long-term memory are intact. The discs are sharp with positive venous pulsations bilaterally. There are no exudates, hemorrhages, or blood vessel changes seen. Pupils are 4 mm bilaterally and reactive to light. Closing 1 eye or the other he has a full range of motion in each eye without any double vision or visual issues. With both eyes open, extraocular eye muscles seem intact without nystagmus. However, looking up, his left eye deviates a couple of degrees outward compared to the right. He states that he has double vision. Otherwise, he can track objects in all directions without obvious disconjugate gaze or nystagmus. Visual acuity and visual hogue seem normal grossly to confrontation. There are no deficits to sensation in the face in all 3 distributions of the fifth cranial nerve bilaterally. Corneal reflexes are positive bilaterally. Facial strength and symmetry was normal bilaterally. Hearing seems intact grossly to voice and finger rub bilaterally. Palate moves well without asymmetry. There is normal sternocleidomastoid and trapezius strength bilaterally. Tongue is midline with good strength bilaterally. Neck has a full range of motion without discomfort. There are no cervical bruits bilaterally. There are no cranial or ocular bruits. Heart is without murmur. There is a regular rhythm and rate. Cervical, thoracic, and lumbar spine are nontender to palpation. Gait was not tested. Stance sitting up in bed is normal. With outstretched arms there is no drift. There are no resting, postural, or action tremors. There is no ataxia with finger to nose testing. There is good facility in the hands. No other abnormal involuntary movements are noted. Motor strength is 5/5 diffusely in the arms bilaterally including deltoids, biceps, triceps, brachioradialis, wrist flexors and extensors, seismographer, and intrinsic hand muscles. Motor strength is 5/5 diffusely in the legs bilaterally including hip flexors, quadriceps, hamstrings, gastrocnemius, tibialis anterior, tibialis posterior, and Peroneii muscles bilaterally. Toe extensors are normal and there is good bulk in the extensor digitorum brevis muscles bilaterally. The limbs have good tone without rigidity or spasticity. There is no atrophy noted in the muscles. Muscle bulk is normal, there is no tenderness to palpation, no myotonia to percussion, and no fasciculations seen. Sensory examination is intact to touch and pin throughout all 4 limbs diffusely. Reflexes are 2/4 in the biceps, triceps, brachioradialis, quadriceps, and Achilles tendons bilaterally. Toes are downgoing with plantar stimulation bilaterally. Peripheral pulses are present and of normal quality distally in all 4 limbs. There is no peripheral edema noted in the limbs. Results & Data Vital Signs (Past 12 Hours) Vital Signs Temp Pulse Pulse Resp BP Pulse Ox O2 Del Method 07/03/24 07:08 36.4 C L 71 18 119/69 96 Room Air 07/03/24 05:09 36.4 C L 84 16 111/69 96 Room Air 07/03/24 03:56 Room Air 07/03/24 02:40 44 L 07/02/24 23:31 56 L 17 121/69 98 Room Air PG Care Time/CCT Total # of Minutes Spent Total Time Spent with Patient: Total time spent is greater than 50% in coordination of care (as documented) at patient's floor/unit and/or counseling patient: Coding Level of Care Code 51268 INT INP/OBS CARE 3/75MIN Diagnoses Diplopia H53.2 Arachnoid cyst G93.0 Time Spent (min) 75
[2024-07-03 11:36] LABS: Estimated Average Glucose 103 mg/dl; Hemoglobin A1C 5.2 % (4.5-5.6)
--- NOTE | 2024-07-03 13:34 | Med Student Discharge Summary ---
Date of Service July 03, 2024 Admission HPI Per Admitting Provider Patient is a 18-year-old male with no significant past medical history. He presented to the ED after returning from spring with double vision that began at 8:30 PM. He opens his eyes one by one he has no double vision, but when both eyes are open he sees [address] of the head showed arachnoid cyst in the anterior aspect of the left middle cranial fossa. Brain and orbit MRI with and without contrast ordered and pending. He is being admitted to have neurology eval in the morning. Patient seen at bedside with his friends present. he stated that at 8:30 PM he began with double vision that has been worsening, however improved after receiving Benadryl, Reglan, and Ativan in the ED. He endorses associated nausea and dizziness, however became extremely anxious that his vision would not return and feels as though that was contributing to his nausea. He stated the diplopia gets worse further away and is equal in both of his eyes. It is at a horizontal standpoint. He stated it is an exact replica of the objects, denies it being shadow like. He stated he does wear reading glasses occasionally. He did recently start Vyvanse on , approximately 3 days ago, he only took it 1 time to see if he had a reaction. he denies any fevers, chills, chest pain, shortness of breath, ABD pain, vomiting, diarrhea, flulike symptoms, rhinorrhea, sore throat, congestion, cough. Patient does not use nicotine products or regularly drink alcohol. He is a daily marijuana user for approximately 3 years. He denies any illicit drug use other than marijuana. He stated he does not believe he has ever been bit by a tick, denies any rashes. His girlfriend and roommates had mono last semester, however he was tested and was negative. His only past medical history is childhood asthma, he rarely uses his inhaler. He denies past history of DM. He wishes to be full code. Admission Exam (Per Admitting) Constitutional The patient is awake, alert and oriented 3, well developed and well nourished, normocephalic and atraumatic, in no acute distress. Non-toxic appearing. HEENT- mucous membranes moist. Hearing grossly intact. + EOM deficit (R lags behind L, but did receive 2 mg ativan). PERRL Heart-normal S1 and S2. No murmurs, rubs or gallops. Lungs-clear bilaterally, no respiratory distress, no accessory muscle use. Abdomen-normal bowel sounds and soft. No ascites noted. Non-tender. Extremities- no clubbing, cyanosis, or edema. Rheumatologic-normal range of motion. Psychiatric- Anxious affect. Discharge Exam Constitutional Well-developed, well-nourished, appears stated age. In no acute distress Eyes Conjunctivae clear, sclera nonicteric. PERRL, EOMI w/full range of motion. Minimal delay of L movement, and minimal nystagmus in vertical gaze Respiratory Nonlabored breathing. Lungs clear to auscultation bilaterally, no wheezing, rales, rhonchi Cardiovascular Regular rate and rhythm, no murmurs, rubs, gallops Psychiatric Euthymic mood w/mood-affect congruence Discharge Data Consultations 07/03/24 00:30 ED Decision to Admit Stat 07/03/24 04:15 Consult Neurology Routine Hospital Course (1) Diplopia: (2) Arachnoid cyst: (3) Anxiety: Plan Patient is a 18-year-old male with no significant past medical history. He presented to the ED after returning from [place] with double vision that began at 8:30 PM. Sees 2 objects vertically displaced at baseline gaze, resolves when [address] of the head showed arachnoid cyst in the anterior aspect of the left middle cranial fossa. Brain and orbit MRI with and without contrast were unremarkable. Neurology was consulted and found the orbits, brainstem and cranial nerve pathways to be intact without evidence of inflammation/infection. Lyme was negative, all other labs were negative. He is medically stable and would likely benefit most from outpatient ophthalmology evaluation at this point. #diplopia denies trauma to the eye Neurology consulted head ct shows arachnoid cyst head/neck CTA negative brain/orbit MRI negative Outpatient ophthalmology evaluation recommended - differential includes but not limited to tickborne illness, viral illness, Medication side effect (recently started Vyvanse, can cause diplopia, took 1x dose 06/29) TSH WNL Glucose = 84, A1c = 5.2 Lyme screen negative Electrolytes stable Continue supportive care with Ativan and Reglan as needed #arachnoid cyst CT head showed 4.3 x 2.4 x 2.5 arachnoid cyst in anterior aspect of left middle cranial fossa - no mass effect Brain and orbit MRI negative Neurology consulted Reviewed imaging, attributed as incidental finding #anxiety 2/2 diplopia Ativan as needed does not use anything for anxiety at baseline Discharge Plan Discharge Items Patient Disposition: Home - Self-Care Reason For Visit: DIPLOPIA, ARACHNOID CYST Discharge Diagnosis: diplopia Condition on Discharge: Good Activity: Per Instructions section Bathing: No limitations Non-emergency contact: Primary Care Provider and Double Cutter Call non-emergency contact if: your symptoms worsen and your pain is not controlled Follow-up/Referrals: [facility] [Primary Care Provider] - (PLEASE CALL [facility] TO MAKE A HOSPITAL FOLLOW UP IN 7-10 DAYS.) Diet: Regular Addtl Attending Provider Instructions: You were seen and evaluated for your sudden-onset of diplopia (double-vision) on the evening of 07/02/24. Your imaging came back only showing a L anterior temporal arachnoid cyst, but based on location it is highly unlikely that this caused your sudden diplopia. No acute concerns for any cranial nerve palsy upon evaluation by neurologist Dr. Soria. Extensive imaging study including MRI of the orbits and brain with and without contrast showed no abnormalities referable to his double vision. Brainstem and cranial nerve pathways were normal. The orbits did not show any evidence of inflammation/infection. Below recommendations from neurologist Dr. Soria: 1. Consider ESR, CRP, acetylcholine receptor antibodies titers (binding, blocking, and modulating), LUBA which can be done outpatient 2. Patient should see an translator as an outpatient 3. I do not see any indication for any additional neurologic testing at this time 4. There is no specific neurologic treatment for this. 5. Patient could follow-up with neurology PA in 3 to 4 weeks post discharge if he still has the issue. Do not drive or operate machinery while having your double vision - consider patching one eye until diplopia has resolved. Pending Studies at Discharge: Yes Stand-Alone Forms: My [email or web address], Smoking Cessation Medications and DC Order Prescriptions: No Action No Known Home Medications Discharge Orders: Discharge Order (Routine); Ordered 07/03/24 Ordered By: Juanito Marquez/Other Patient Handouts: Brain Cyst, ED Double Vision (Diplopia) Admission Data Admit Date/Time: 07/03/24 02:42 Attending Provider: Andre Moscoso Admit Provider: Sidra Kyle Primary Care Provider: [facility] Other Providers: Zackery Correa; Brandan Lemon Other Interventions: Discharge Summary Assessment (RN) Last Done: 07/03/24 13:59 Supervising Attestation ATTESTATION I also saw the patient and confirmed arevalo portions of the history and exam. I agree with the impression and plan in the resident documentation, and as summarized below. I also discussed case with the consulting neurologist. Upon my midmorning exam, the patient has noted some improvement/lessening of his diplopia. When he opens his eyes, he will have no double vision, but will develop some the longer he keeps them open. He is able to rectify the diplopia by nearly covering one of his eyes. His mother has come in from [place]. He does have an outpatient appoint with ophthalmology today at 215. Patient is family had been in [place] for the last week. No other family members with illness. No mosquito bites. He did have alcohol while on vacation, and mom did ask if this could be a possible cause. EXAM Blood pressure 119/69, pulse 71, respiratory 18, temperature 36.4, pulse oximetry 96% on room air Exam unremarkable as documented above DATA Labs CBC, BMP unremarkable. TSH 3.362 Anaplasma, Babesia smears negative Lyme screening negative Additional studies pending Imaging MRI of the brain and orbits completed upon admission demonstrates arachnoid cyst, left anterior temporal region. CTA of the head and neck completed upon admission negative. 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 I reviewed the consultation and recommendations with the patient and his mother. Patient has an outpatient ophthalmology appointment today at 215. Pending labs also reviewed; will review upon completion discharge plans today include ophthalmology appointment and subsequent follow- up as directed potentially will need neuro follow-up, but this will likely depend on the ophthalmology consultation from today Additional per resident documentation Andre Lund DO, attending physician, spent 35 minutes myself seeing the patient, reviewing the chart, and documenting today.
--- NOTE | 2024-07-03 14:38 | Electrocardiogram Report ---
Test Reason : Blood Pressure : */* mmHG Vent. Rate : 46 BPM Atrial Rate : 46 BPM P-R Int : 176 ms QRS Dur : 102 ms QT Int : 420 ms P-R-T Axes : 91 53 34 degrees QTcB Int : 367 ms Sinus bradycardia with sinus arrhythmia Otherwise normal ECG No previous ECGs available Confirmed by Jarret Rosenberg ([id number]) on 07/03/2024 2:38:15 PM Referred By: REFERRED SELF Confirmed By: Jarret Rosenberg
[2024-07-06 15:47] LABS: Babesia microti DNA Not Detected (Not Detected)
== END 2024-07-03 14:16 | disposition home or self-care (01) ==
LOC: ED 21:31 → 3N 21:31 → SUATTDRO 07-03 02:42 → 3N 07-03 03:56